=== PATIENT | male | born 1935 | race Caucasian/White ===

== ENCOUNTER 2018-03-28 14:29 | Emergency (ER) | payer MEDICARE, OTHER ==
--- NOTE | 2018-03-28 15:36 | RAD ---
INDICATION: Trauma to the occiput. COMPARISON: None. TECHNIQUE: Axial source images were acquired with coronal and sagittal reformatting. FINDINGS: There is a mild degree of exaggeration of the cervical lordosis. There is loss of intervertebral disc height at multiple levels with mild marginal osteophyte formation. Degenerative changes are most severe at C5/C6. There is no fracture or focal bony lesion. The canal and foramina appear widely patent. The odontoid and the atlantodental interval are normal. The prevertebral soft tissues appear normal. The visualized soft tissue elements of the neck are normal. The visualized lung apices are clear. IMPRESSION: DEGENERATIVE CHANGES OF THE CERVICAL SPINE WITHOUT ACUTE FRACTURE OR DISLOCATION.
--- NOTE | 2018-03-28 15:42 | RAD ---
Indication: Syncope. CT of the brain was performed without IV contrast. No prior study is available for comparison. There is parafalcine high density material just to the left of the falx consistent with a left-sided subdural hematoma. There may be tiny foci of subarachnoid hemorrhage bilaterally. This is in the parietal convexities bilaterally as well as in the right temporal region. There is also suggestion of right-sided supratentorial subdural hematoma. Ventricular structures are midline. No midline shift is noted. Prominent extra-axial spaces are noted.. The bony structures demonstrates no fracture. Paranasal sinuses are unremarkable. IMPRESSION: Left-sided parafalcine subdural hematoma with areas of subarachnoid hemorrhage bilaterally in the parietal convexities as well as in the right temporal lobe. Suggestion of right supratentorial subdural hematoma is also noted. Findings discussed with Dr. Lewis at 1535 hours.
[2018-03-28 15:53] LABS: ABS Basophils 0 10^3/ul (0-0.2); ABS Eosinophils 0 10^3/ul (0-0.6); ABS Lymphocytes 0.9 10^3/ul (1.0-4.8); ABS Monocytes 0.4 10^3/ul (0-0.8); ABS Neutrophils 7.5 10^3/ul (1.5-7.7); ABS Nucleated RBC 0 10^3/ul; Eosinophil % 0.3 % (0-6); Hematocrit 40 % (42-52); Hemoglobin 13.5 g/dl (14.0-18.0); Mean Corpuscular HGB Conc 34 g/dl (31-36); Mean Corpuscular Hemoglobin 30 pg (27-31); Mean Corpuscular Volume 89 fL (80-94); Mean Platelet Volume 7.6 um3 (7.4-10.4); Nucleated Red Blood Cells % 0.1; Platelet Count 198 10^3/ul (150-450); Red Blood Count 4.47 10^6/ul (4.0-5.4); Red Cell Distribution Width 14 % (10.5-15); White Blood Count 8.8 10^3/ul (3.5-10.8)
[2018-03-28 15:56] LABS: INR 2.73 (0.77-1.02)
[2018-03-28] MEDS ORDERED: Phytonadione INJ (Adult)* 10 MG/ML 1 ML AMP IV ONE (15:57)
--- NOTE | 2018-03-28 16:11 | ED ---
Aguila Hua Angela scribed for Vince Lewis MD on 03/28/18 at 1510 . Adult Trauma - HPI Summary HPI Summary: This pt is a 82 y/o male presenting to [facility] via EMS c/o head strike s/p fall today. Pt reports he is unable to remember how he fell today. 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 Per EMS, pt slipped and fell off the back of his truck, striking his head. Pt had LOC and does not remember falling. He currently c/o right elbow pain and abrasion at right elbow. Denies chest pain, SOB, melena, headache, dizziness. He denies being sick lately. PMHx includes afib, coronary bypass (in 2000). Pt is on anticoagulants, Warfarin. Denies hx of diabetes or UTI. - History of Current Complaint Chief Complaint: EDHeadInjury Stated Complaint: FALL Time Seen by Provider: 03/28/18 14:51 Hx Obtained From: Patient Mechanism of Injury: Fall Loss of Consciousness: prolonged (minutes) Onset/Duration: Started Hours Ago, Traumatic, Still Present Onset of Pain: Hours Current Severity: Moderate Pain Intensity: 3 Pain Scale Used: 0-10 Numeric Location: Extremities - right elbow Aggravating Factor(s): Nothing Alleviating Factor(s): Nothing Associated Signs & Symptoms: Positive: Loss of Consciousness, Other: - NEG: headache, dizziness. Negative: SOB, Chest Pain, Significant Blood Loss - Allergy/Home Medications Allergies/Adverse Reactions: Allergies Allergy/AdvReac Type Severity Reaction Status Date / Time No Known Allergies Allergy Verified 03/28/18 14:49 Home Medications: Home Medications Amiodarone TAB* [Cordarone TAB*] 100 mg PO SUTUWETHSA 03/28/18 [History Confirmed 03/28/18] Amiodarone TAB* [Cordarone TAB*] 200 mg PO MOFR 03/28/18 [History Confirmed 10/05] Aspirin EC TAB* [Ecotrin EC Low Dose 81 MG*] 81 mg PO DAILY 03/28/18 [History Confirmed 03/28/18] Aspirin EC TAB* [Ecotrin EC Low Dose 81 MG*] 81 mg PO DAILY 03/28/18 [History Confirmed 03/28/18] Levothyroxine TAB* [Synthroid TAB*] 75 mcg PO DAILY 03/28/18 [History Confirmed 03/28/18] Simvastatin TAB(NF) [Zocor(NF)] 10 mg PO QPM 03/28/18 [History Confirmed ] Warfarin TAB(*) [Coumadin TAB(*)] 2.5 mg PO SUTUWEFRSA 03/28/18 [History Confirmed 03/28/18] Warfarin TAB(*) [Coumadin TAB(*)] 5 mg PO MOTH 03/28/18 [History Confirmed 03/28] amLODIPine TAB* [Norvasc 5 mg TAB*] 2.5 mg PO DAILY 03/28/18 [History Confirmed 03/28/18] PMH/Surg Hx/FS Hx/Imm Hx Endocrine/Hematology History: Reports: Hx Anticoagulant Therapy, Hx Thyroid Disease - hypothyroidism Denies: Hx Diabetes Cardiovascular History: Reports: Hx Atrial Fibrillation, Other Cardiovascular Problems/Disorders - hyperlipidemia Denies: Hx Congestive Heart Failure, Hx Hypertension, Hx Pacemaker/ICD - Surgical History Surgery Procedure, Year, and Place: Hernia repair. Coronary bypass. cataract surgery Infectious Disease History: No Infectious Disease History: Denies: Traveled Outside the [place] in Last 30 Days - Family History Known Family History: Positive: Cardiac Disease - CAD - Social History Alcohol Use: None Substance Use Type: Reports: None Hx Tobacco Use: No Smoking Status (MU): Never Smoked Tobacco Review of Systems Negative: Fever, Chills Negative: Erythema Negative: Sore Throat Negative: Chest Pain Negative: Shortness Of Breath, Cough Negative: Abdominal Pain, Vomiting, Nausea, Other - melena Negative: dysuria, hematuria Positive: Arthralgia - right elbow pain. Negative: Myalgia, Edema Skin: Other - abrasion on right elbow Negative: Rash Neurological: Other - NEG: dizziness Negative: Headache All Other Systems Reviewed And Are Negative: Yes Physical Exam - Summary Physical Exam Summary: Constitutional: Well-developed, Well-nourished, Alert, Cooperative Skin: Warm, Dry HENT: Normocephalic; No Racoons eyes; No zelaya's sign; No hemotympanum; Dentition are smooth; No dental trauma; No trismus. Some dry blood on the front of his upper nose. Eyes: EOM normal, PERRL Neck: Trachea is midline. No stridor; No JVD; No step off; No posterior cervical spine tenderness Cardio: Rhythm regular, rate normal Heart sounds normal; Intact distal pulses; The pedal pulses are 2+ and symmetric. Radial pulses are 2+ and symmetric. Pulmonary/Chest wall: Effort normal; Breath sounds normal; Equal chest rise; No flail segment; No rib tenderness; No sternal tenderness Abd: Soft, Appearance normal. No distension; No tenderness; No palpable pulsatile mass; No Cullens sign; No Francois-Turners sign Musculoskeletal: Full ROM and no tenderness at hips, ankles, shoulders, elbows and knees; No joint swelling; No vertebral body tenderness; No paraspinal tenderness; No step off or deformity of the spine; Pelvis is stable to lateral compression and rock Neuro: Alert, Oriented x3, Strength 5/5 all extremities. : No blood at urethral meatus Psych: Mood and affect Normal Triage Information Reviewed: Yes Vital Signs On Initial Exam: Initial Vitals Temp Pulse Resp BP Pulse Ox 98.5 F 57 18 168/83 95 03/28/18 14:44 03/28/18 14:44 03/28/18 14:44 03/28/18 14:44 03/28/18 14:44 Vital Signs Reviewed: Yes - Ralston Coma Scale Best Eye Response: 4 - Spontaneous Best Motor Response: 6 - Obeys Commands Best Verbal Response: 5 - Oriented Coma Scale Total: 15 Diagnostics - Vital Signs Vital Signs Temp Pulse Resp BP Pulse Ox 03/28/18 14:44 98.5 F 57 18 168/83 95 - Laboratory Lab Results: Lab Results 03/28/18 03/28/18 03/28/18 Range/Units 15:40 15:40 15:44 WBC 8.8 (3.5-10.8) 10^3/ul RBC 4.47 (4.0-5.4) 10^6/ul Hgb 13.5 L (14.0-18.0) g/dl Hct 40 L (42-52) % MCV 89 (80-94) fL MCH 30 (27-31) pg MCHC 34 (31-36) g/dl RDW 14 (10.5-15) % Plt Count 198 (150-450) 10^3/ul MPV 7.6 (7.4-10.4) um3 Neut % (Auto) 84.4 H (38-83) % Lymph % (Auto) 10.0 L (25-47) % [place] % (Auto) 4.9 (0-7) % Eos % (Auto) 0.3 (0-6) % Baso % (Auto) 0.4 (0-2) % Absolute Neuts (auto) 7.5 (1.5-7.7) 10^3/ul Absolute Lymphs (auto) 0.9 L (1.0-4.8) 10^3/ul Absolute Monos (auto) 0.4 (0-0.8) 10^3/ul Absolute Eos (auto) 0 (0-0.6) 10^3/ul Absolute Basos (auto) 0 (0-0.2) 10^3/ul Absolute Nucleated RBC 0 10^3/ul Nucleated RBC % 0.1 INR (Anticoag Therapy) 2.73 H (0.77-1.02) Blood Type Pending Antibody Screen Pending Result Diagrams: 03/28/18 15:40 Lab Statement: Any lab studies that have been ordered have been reviewed, and results considered in the medical decision making process. - Radiology Chest XR Radiology Interpretation Completed By: Radiologist - CT Brain CT CT Interpretation: Positive (See Comments) - IMPRESSION: Left-sided parafalcine subdural hematoma with areas of subarachnoid hemorrhage bilaterally in the parietal convexities as well as in the right temporal lobe. Suggestion of right supratentorial subdural hematoma is also noted. Dr. Lewis has reviewed this radiology report. CT Interpretation Completed By: Radiologist Cervical spine CT CT Interpretation: No Acute Changes - IMPRESSION: Degenerative changes of the cervical spine without acute fracture or dislocation. Dr. Lewis has reviewed this radiology report. CT Interpretation Completed By: Radiologist - EKG 15:08 Cardiac Rate: Bradycardia - at 58 bpm EKG Rhythm: Sinus Bradycardia EKG Interpretation: No STEMI. Re-Evaluation - Re-Evaluation First Eval Re-Evaluation Time: 15:45 Comment: I reviewed the brain CT results with the pt's family. I discussed the plan to transfer to [facility]. Second Eval Re-Evaluation Time: 16:00 Comment: I discussed the plan of care with the pt. Third Eval Change: Unchanged - UPDATED RE: TX PLAN, TRANSFER, REVERSAL Adult Trauma Course/Dx - Course Assessment/Plan: Pt is a 82 y/o male who presents with head strike s/p fall today. Pt reports he is unable to remember how he fell today. 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 Per EMS, pt slipped and fell off the back of his truck, striking his head. Pt had LOC and does not remember falling. He currently c/o right elbow pain. Denies chest pain, SOB, melena, headache, dizziness. He denies being sick lately. Pt is on anticoagulated on Warfarin. Cervical spine CT shows degenerative changes of the cervical spine without acute fracture or dislocation. Brain CT reveals left-sided parafalcine subdural hematoma with areas of subarachnoid hemorrhage bilaterally in the parietal convexities as well as in the right temporal lobe. Suggestion of right supratentorial subdural hematoma is also noted. I discussed pt care with Dr. Fitch, neuro webbing inspector at [facility] , who reports to give the pt hydralazine to keep the blood pressure below 140 systolic. She additionally reports to administer Kcentra vs FFP for reversal of INR. Dr. Fitch has agreed to accept the pt for transfer to [facility]. - Diagnoses Provider Diagnoses: Subdural hematoma, Subarachnoid hemorrhage, Anticoagulated - Physician Notifications Discussed Care Of Patient With: Ana Bonilla Time Discussed With Above Provider: 15:35 Instructed by Provider To: Other - Dr. Bonilla, radiologist, reports subdural hematoma and hemorrhage. [15:47] I discussed pt care with Dr. Fitch, neuro webbing inspector at [facility], who reports to give the pt hydralazine to keep the blood pressure below 140 systolic. She additionally reports to administer Kcentra vs FFP for reversal of INR. Dr. Fitch has agreed to accept the pt for transfer to [facility]. - Critical Care Time Critical Care Time: 30-74 min Discharge - Sign-Out/Discharge Documenting (check all that apply): Discharge/Admit/Transfer - Transfer - Discharge Plan Condition: Stable Disposition: TRANS [facility] CARE FAC Discharge Disposition Comment: [facility] Referrals: Deion Brown MD [Primary Care Provider] - - Billing Disposition and Condition Condition: STABLE Disposition: EMTALA The documentation as recorded by the [place] Angela accurately reflects the service I personally performed and the decisions made by me, Vince Lewis MD.
[2018-03-28 16:24] LABS: EGFR Non-African American 46.4 (>60)
[2018-03-28] MEDS: hydrALAZINE IV* 20 MG/ML VIAL IV SLOW PU ONE ×2 (19:31→19:33)
[2018-03-28 19:36] VITALS: BP 157/84
== END 2018-03-28 19:33 | disposition short-term general hospital (02) ==
LOC: ED 14:29
DX: I60.9 Nontraumatic subarachnoid hemorrhage, unspecified (principal); M25.521 Pain in right elbow; Z79.01 Long term (current) use of anticoagulants
CPT/HCPCS: 36415; 70450; 72125; 80053; 83605; 83735; 84443; 84484; 85025; 85610; 86850; 86900; 86901; 93005; 96374; 96375; 99285; C9132; J3430

== ENCOUNTER 2018-11-22 08:50 | Inpatient (IN) | payer MEDICARE, OTHER ==
--- NOTE | 2018-11-22 09:29 | ED ---
HPI Chest Pain - HPI Summary HPI Summary: Patient is an 83-year-old male with history of CABG and dysrhythmia presenting to the ED with left-sided rib tenderness. He states he injured the ribs approximately 10 days ago, stating he twisted wrong in bed and since that time the ribs have been in pain. He denies any chest pain. Denies any back pain. He is also endorsing some "gurgling" in his abdomen and is concerned if these are related. He endorses concern for his heart d/t his history. Patient is a poor historian and continues to state "I don't know" when asked about timelines and what is his CC. denies any fevers, sweats, chills. Denies any SOB. He states the pain is currently a 3/10, constant and aching. He denies any nausea , vomiting, diarrhea, constipation. Denies any urinary symptoms. He takes levothyroxine, warfarin, aspirin and simvastatin daily. PCP is Dr. Kaufman. - History of Current Complaint Chief Complaint: EDChestWallPain Time Seen by Provider: 11/22/18 09:00 Hx Obtained From: Patient Onset/Duration: Started Hours Ago Timing: Constant Initial Severity: Moderate Current Severity: Mild Pain Intensity: 3 Pain Scale Used: 0-10 Numeric Chest Pain Location: Left Anterior - left sided rib pain Chest Pain Radiates: No Character: Dull/Aching Aggravating Factor(s): Nothing Alleviating Factor(s): Nothing Associated Signs and Symptoms: Positive: Negative - Risk Factors AMI/ACS Risk Factors: Dyslipidemia - Allergy/Home Medications Allergies/Adverse Reactions: Allergies Allergy/AdvReac Type Severity Reaction Status Date / Time No Known Allergies Allergy Verified 11/22/18 08:58 PMH/Surg Hx/FS Hx/Imm Hx Previously Healthy: Yes Endocrine/Hematology History: Reports: Hx Anticoagulant Therapy, Hx Thyroid Disease - hypothyroidism Denies: Hx Diabetes Cardiovascular History: Reports: Hx Atrial Fibrillation, Other Cardiovascular Problems/Disorders - hyperlipidemia Denies: Hx Congestive Heart Failure, Hx Hypertension, Hx Pacemaker/ICD - Surgical History Surgery Procedure, Year, and Place: Hernia repair. Coronary bypass. cataract surgery - Immunization History Hx Pertussis Vaccination: No Immunizations Up to Date: Yes Infectious Disease History: No Infectious Disease History: Denies: Traveled Outside the [place] in Last 30 Days - Family History Known Family History: Positive: Cardiac Disease - CAD - Social History Occupation: Unemployed Lives: With Family Alcohol Use: None Hx Substance Use: No Substance Use Type: Reports: None Hx Tobacco Use: No Smoking Status (MU): Never Smoked Tobacco Review of Systems Negative: Fever, Chills, Fatigue, Skin Diaphoresis Negative: Blurred Vision, Diplopia Negative: Dental Pain, Sore Throat Positive: Chest Pain - left sided pain over ribs Negative: Shortness Of Breath, Cough Positive: Other - abdominal "fluttering" Genitourinary: Negative Positive: no symptoms reported, see HPI Positive: Myalgia - left sided ribs Neurological: Negative All Other Systems Reviewed And Are Negative: Yes Physical Exam Triage Information Reviewed: Yes Vital Signs On Initial Exam: Initial Vitals Temp Pulse Resp BP Pulse Ox 97.1 F 70 14 143/78 98 11/22/18 08:53 11/22/18 08:53 11/22/18 08:53 11/22/18 08:53 11/22/18 08:53 Vital Signs Reviewed: Yes Appearance: Positive: Well-Appearing, Well-Nourished Skin: Positive: Skin Color Reflects Adequate Perfusion Head/Face: Positive: Normal Head/Face Inspection Eyes: Positive: EOMI, SHLOMO, Conjunctiva Clear Neck: Positive: Supple, No Lymphadenopathy Respiratory/Lung Sounds: Positive: Clear to Auscultation, Breath Sounds Present Cardiovascular: Positive: Pulses are Symmetrical in both Upper and Lower Extremities. Negative: Leg Edema Left, Leg Edema Right Musculoskeletal: Positive: Normal, Strength/ROM Intact Neurological: Positive: Speech Normal Psychiatric: Positive: Normal, Affect/Mood Appropriate AVPU Assessment: Alert Diagnostics - Vital Signs Vital Signs Temp Pulse Resp BP Pulse Ox 11/22/18 08:53 97.1 F 70 14 143/78 98 - Laboratory Result Diagrams: 11/22/18 10:02 11/22/18 10:02 Lab Statement: Any lab studies that have been ordered have been reviewed, and results considered in the medical decision making process. - CT No standard instances CT Interpretation Completed By: Radiologist - IMPRESSION: Minimally impacted and displaced distal right radius fracture. - EKG No standard instances EKG Rhythm: Sinus Rhythm ST Segment: Normal - Left bundle-branch block Ectopy: None EKG Comparison: No Significant Change Chest Pain Course/Dx - Course Course Of Treatment: During questioning, the patient is evaluated for left- sided rib pain and abdominal "are going." CT of the chest abdomen pelvis obtained. Labs obtained. EKG obtained. Patient is comfortable, nondiaphoretic. Vital signs are stable. Patient appears well, alert and oriented. is at bedside. EKG shows normal sinus rhythm with a left bundle branch block. History of CABG. Troponin elevated. I have asked hospitalist to come see the patient and admit for elevated troponin. We'll repeat troponin in 1 hour. - Chest Pain Differential Diagnosis/HQI/PQRI: Acute MO, ACS, Angina, CHF, Chest Wall - Diagnoses Provider Diagnoses: Elevated troponin, Left-sided chest wall pain - Provider Notifications Discussed Care Of Patient With: Alexandr Robles Discharge - Sign-Out/Discharge Documenting (check all that apply): Patient Departure - Discharge Plan Condition: Fair Disposition: ADMITTED TO [facility] - Billing Disposition and Condition Condition: FAIR Disposition: Admitted to [facility]
[2018-11-22 10:20] LABS: ABS Basophils 0.1 10^3/ul (0-0.2); ABS Eosinophils 0 10^3/ul (0-0.6); ABS Monocytes 0.5 10^3/ul (0-0.8); ABS Neutrophils 4.2 10^3/ul (1.5-7.7); ABS Nucleated RBC 0 10^3/ul; Eosinophil % 0.3 %; Hematocrit 42 % (42-52); Hemoglobin 14.1 g/dl (14.0-18.0); Lymphocyte % 17.5 %; Mean Corpuscular HGB Conc 34 g/dl (31-36); Mean Corpuscular Hemoglobin 30 pg (27-31); Mean Corpuscular Volume 88 fL (80-94); Mean Platelet Volume 7.5 fL (7.4-10.4); Nucleated Red Blood Cells % 0; Platelet Count 218 10^3/ul (150-450); Red Cell Distribution Width 14 % (10.5-15); White Blood Count 5.7 10^3/ul (3.5-10.8)
[2018-11-22 10:29] LABS: Activated Partial Thrombo Time 44.5 seconds (26.0-36.3); INR 2.58 (0.77-1.02)
[2018-11-22 10:41] LABS: Albumin 3.8 g/dL (3.2-5.2); Albumin/Globulin Ratio 1.3 (1-3); BUN/Creatinine Ratio 20.7 (8-20); C Reactive Protein 1.44 mg/L (<8.01); Calcium 9.2 mg/dL (8.6-10.3); Magnesium 1.9 mg/dL (1.9-2.7); Potassium 4.5 mmol/L (3.5-5.0); Total Bilirubin 0.6 mg/dL (0.2-1.0); Total Protein 6.8 g/dL (6.4-8.9)
[2018-11-22] MEDS ORDERED: Levofloxacin 750 MG IVPREMIX(* 750 MG/150 ML BAG IVPB ONE (11:12)
[2018-11-22 11:56] LABS: Urine Appearance Clear; Urine Bacteria Absent (Absent); Urine Bilirubin Negative (Negative); Urine Blood 1+ (Negative); Urine Color Yellow; Urine Glucose Negative (Negative); Urine Ketones Trace (Negative); Urine Nitrite Negative (Negative); Urine Protein Negative (Negative); Urine Red Blood Cell 1+(3-5/hpf) (Absent); Urine Specific Gravity 1.017 (1.010-1.030); Urine Urobilinogen Negative (Negative); Urine White Blood Cell Trace(0-5/hpf) (Absent)
[2018-11-22] MEDS ORDERED: Azithromycin IV(*) 500 MG in NS 0.9% 250 ML* 250 ML IVPB ONE (12:02)
[2018-11-22 15:57] LABS: Erythrocyte Sed Rate 18 mm/Hr (0-40)
--- NOTE | 2018-11-22 15:57 | HP ---
CC: Dr. Deion Brown; Dr. Pawan Antunez * HISTORY AND PHYSICAL: DATE OF ADMISSION: 11/22/18 PRIMARY CARE PROVIDER: Dr. Deion Brown. PRIMARY PRECISION LAYOUT WORKER: Dr. Pawan Antunez. ATTENDING PHYSICIAN: Dr. Alexandr Robles * (dictated by Cheryl Lee NP). CHIEF COMPLAINT: Left rib tenderness. HISTORY OF PRESENT ILLNESS: Mr. Hernandes is an 83-year-old male with past medical history significant for hypothyroidism, hyperlipidemia, atrial flutter, osteopenia, chronic kidney disease stage 2, chronic ischemic heart disease, L2 compression fracture, left bundle-branch block, mitral valve disorder, and hypertension, who states that approximately 10 days ago while sleeping on his stomach with his arms crossed underneath him, he felt as though he twisted wrong in the bed and heard a "cracking sound" in his left ribs. Please note that this patient is a poor historian and is really unsure of a lot of his medical care and his is no longer at bedside to assist with HPI. Ever since then, he has been having left- sided discomfort mostly at night when he is sleeping on his left side. He also reports having increased upper abdominal discomfort when ambulating that he relates to being "gas in his stomach." He denies any fevers, chills. Initially, he denies any shortness of breath, nausea , vomiting, diarrhea, dysuria, or urgency. He states he has urinary frequency at baseline. He denies any lightheadedness or dizziness. He says he occasionally has coughing spells due to postnasal drip. He states when he had his previous MT and 5-vessel CABG in 2000, he had no chest pain at that time but had noted that his breathing was heavier with his typical activities. He reports having recent increased shortness of breath with ambulation. He has been following with his ice sculptor who had him have pulmonary function testing showing a decrease in his pulmonary function while he was on amiodarone , so his amiodarone was discontinued a few months ago. He states that recently he typically has no problems walking down his [address] to retrieve the paper, but when he gets to the top of the hill, he is often breathing heavy and has to stop to rest. At his last appointment with Cardiology in July, he walked the 4 flight of stairs to their office and felt slightly more short of breath at that point also. Due to his discomfort, he decided to present to the emergency room for further evaluation of his symptoms. While in the emergency room, he had an EKG showing a sinus rhythm, a left bundle - branch block, and no acute ischemia. He had labs showing a troponin of 1.9, which was re-run by the lab and the second run on that was 2. He was noted to have his baseline chronic kidney disease and INR of 2.58. Additionally, he had a chest, abdomen, and pelvis CT scan due to his vague abdominal complaints. He was noted to have a deformity of L2 and a possible atypical pneumonia in his right upper lobe. The hospitalist was asked to evaluate him for admission. PAST MEDICAL HISTORY: 1. Hypothyroidism. 2. Hyperlipidemia. 3. Atrial flutter. 4. Osteopenia. 5. Chronic kidney disease, stage 2. 6. Chronic ischemic heart disease. 7. L2 compression fracture. 8. Left bundle-branch block. 9. Mitral valve disorder. 10. Hypertension. PAST SURGICAL HISTORY: 1. Status post inguinal hernia repair. 2. Status post 5-vessel coronary artery bypass graft in 2000. 3. Status post bilateral cataract extractions. HOME MEDICATIONS: Include: 1. Warfarin 5 mg oral daily on Saturday, Saturday, Saturday, , and Saturday and 2.5 mg oral daily on Tuesdays and Saturdays. 2. Zocor 10 mg oral every evening. 3. Levothyroxine 75 mcg oral daily. 4. Aspirin 81 mg oral daily. ALLERGIES: 1. LIPITOR caused a rash and myalgia. 2. VYTORIN caused nausea. 3. ZOCOR caused myalgia at higher doses. 4. CRESTOR, myalgia on 5 mg. FAMILY HISTORY: His mother passed of congestive heart failure. His father passed from suicide. He has a brother with a history of CVA, a brother with a history of coronary artery disease, a brother with a history of lymphoma, and a brother with a history of prostate cancer. He denies any family history of diabetes. SOCIAL HISTORY: He denies tobacco, alcohol, or recreational drug use. His Alysia Hernandes will be his surrogate decision maker in the event he is unable to make decisions for himself. REVIEW OF SYSTEMS: I performed an 11-point review of systems. All the pertinent positives and negatives are mentioned in the history of present illness. The remaining review of systems are negative. PHYSICAL EXAMINATION GENERAL APPEARANCE: The patient is alert, pleasant, and appears to be in no acute distress. VITAL SIGNS: Temperature 97.1, heart rate 65, respiratory rate 18, O2 sat 95% on room air, blood pressure 168/87. HEENT: Normocephalic, atraumatic. Pupils are equal and reactive to light. Extraocular movements are intact. RESPIRATORY: There is no accessory muscle use and the lungs are clear to auscultation bilaterally. CARDIOVASCULAR: Regular rate and rhythm. S1 and S2 are present. There is a grade 2/6 systolic murmur heard best at the apex. ABDOMEN: Soft, nontender, nondistended. There are bowel sounds present x4. EXTREMITIES: There is no lower extremity edema. DP and PT pulses are 2+ and symmetric. MUSCULOSKELETAL: There is no clubbing or cyanosis noted. The patient exhibits good strength in all extremities. NEUROLOGICAL: The patient is alert and oriented x4. Cranial nerves II through XII are grossly intact. PSYCHOLOGICAL: Calm and cooperative. SKIN: There are no rashes or abnormalities seen. DIAGNOSTIC STUDIES/LAB DATA: Sodium 138, potassium 4.5, chloride 107, CO2 of 28, BUN 25, creatinine 1.21, and glucose 105. White blood cell count 5.7, hemoglobin 14.1, hematocrit 42, and platelet count 218. Alk phos is 108. INR 2.58 and troponin is 1.90. EKG shows a sinus rhythm, rate of 65. There is a left bundle-branch block and no acute signs of ischemia. This EKG is similar to previous EKG from 03/28/18. Chest, abdomen, and pelvis CT scan from today. Radiologist's impression: There is a compression deformity of the L2 vertebral body that has progressed slightly when compared to 05/07/12 lumbar spine radiograph. Otherwise, there are no acute fractures. CT findings could be compatible with atypical pneumonia involving the lateral right upper lobe. Benign appearing lipoma at the right axilla. Please correlate to physical exam findings. Chronic degenerative and iatrogenic findings described in the body of the report, unlikely to be directly related to the patient's current clinical presentation. IMPRESSION: Mr. Hernandes is an 83-year-old male with past medical history significant for hypothyroidism, hyperlipidemia, atrial flutter, osteopenia, chronic kidney disease stage 2, chronic ischemic heart disease, L2 compression fracture, left bundle-branch block, mitral valve disorder, and hypertension, who presented to the emergency room with complaints of left rib tenderness and increased shortness of breath with activity. He will be admitted as an inpatient for a non-ST elevated myocardial infarction. ASSESSMENT/PLAN: 1. Non-ST elevated myocardial infarction. The patient's initial troponin was 1.09 and on repeat of that lab was 2.0. He has no ischemic changes on his EKG. He does have a chronic left bundle-branch block. He is currently denying chest pain at this time. He has no pain that is reproducible with palpation. I am going to trend his troponins and get serial EKGs with the troponins. If his troponin elevates above his initial troponin, I will ask Cardiology to see him today, but otherwise, I am going to follow his course and see how he does. He is not currently on a beta-anca. He had previously been on metoprolol. I am going to try to review the cardiology notes and see why he has been taken off a beta- anca. He is already on a statin. I am going to leave his dose where it is and check LFTs tomorrow. He has had myalgias with increase in his statins previously, so I am going to leave it as is. I am going to continue him on his aspirin 81 mg daily. I am going to hold on a heparin drip as he is already fully anticoagulated on warfarin, which is therapeutic today. Based on what his troponins do, I will consider getting an echocardiogram tomorrow. 2. Chronic kidney disease, stage 2. His creatinine is at baseline. 3. Hypothyroidism. His last TSH was on 09/04/18, at that time it was 1.23. We will continue him on his home dose of levothyroxine. 4. Hyperlipidemia. Again, as above, we are going to check fasting lipids in the morning. I am going to continue him on his current statin or hospital auto - substitute. 5. Atrial flutter. He is in regular rate today. It appears that he has stayed in sinus rhythm for quite some time after being taken off his amiodarone back in July. We will continue him on his warfarin. He currently has a therapeutic INR. 6. L2 compression fracture. We will offer supportive care, Tylenol as needed for pain. 7. Hypertension. He has been mostly normotensive for somebody of his age with systolic blood pressures in the 140s to 150s while in the emergency room. He is not currently on anything. According to the patient, he was recently taken off his beta-anca and Norvasc. Again, I will try to find the records from Cardiology to see why he has been taken off these medications, but for now I am going to leave his blood pressure where it is at. 8. Fluids, electrolytes, and nutrition: The patient will be on a heart- healthy diet. 9. Code status: Full code. 10. DVT prophylaxis: He is at high risk. He will be continued on his warfarin , which is at a therapeutic level today. 11. Disposition: Inpatient. TIME SPENT: Time for this admission was approximately 60 minutes, greater than half of that was spent with the patient discussing medications, past medical history, the events leading up to his arrival today, and performing a physical examination. The case has been reviewed with the attending Dr. Robles, who agrees with the plan of care. CHERYL LEE, NICKI [id number]/CPS #: [id number] [place]
[2018-11-22] MEDS: Atorvastatin* 10 MG TAB PO SCH (17:00)
[2018-11-22] MEDS ORDERED: Warfarin TAB(*) 2.5 MG PO SCH (17:00)
[2018-11-22] MEDS: Metoprolol Tartrate TAB* 25 MG PO SCH (20:50)
[2018-11-23 05:36] LABS: INR 2.3 (0.77-1.02)
[2018-11-23 05:48] LABS: HDL Cholesterol 47.6 mg/dL
[2018-11-23] MEDS ORDERED: Levothyroxine TAB* 75 MCG TAB PO SCH (06:00)
[2018-11-23 06:34] LABS: TSH (Thyroid Stimulating Horm) 0.31 mcIU/mL (0.34-5.60)
[2018-11-23] MEDS: Metoprolol Tartrate TAB* 25 MG PO SCH ×2 (08:22→20:24)
[2018-11-23] MEDS: Aspirin EC TAB* 81 MG TAB.EC PO SCH (08:22)
--- NOTE | 2018-11-23 10:10 | ECHO ---
Patient: ANI TURK [facility] Rec#: [id number] : 1935 Date: 11/23/2018 Age: 83y Height: 160 cm / 63.0 in Weight: 66 kg / 145.5 lbs Sex: M BSA: 1.69 Room#: [facility] Type: Inpatient Referring: Anya Alberto NP Reading: Chandni Salter MD Porcelain Mixer: Anya Velazquez RDCS CC: Pawan Antunez MD CC: Deion Brown MD Transthoracic Echocardiogram Indication: NSTEMI BP: 125/65 HR: 55 Rhythm: Bradycardia Findings History: Hypothyroidism, HTN, HLD, CKD II, atrial flutter, chronic ischemic heart disease, LBBB, s/p CABG 5 vessel. Technical Comments: The study quality is good. Completed at 0900. Left Ventricle: The left ventricular chamber size is normal. There is no left ventricular hypertrophy. There is moderately decreased left ventricular systolic function.Base of the posterior wall and most of the inferior wall is akinetic and severely hypokinetic. The estimated ejection fraction is 40-45%. There is a left ventricular septal wall motion abnormality observed, possibly due to the presence of a left bundle branch block.and prior CABG. Abnormal left ventricular diastolic filling is observed, consistent with impaired relaxation. Left Atrium: The left atrium is mildly dilated. Right Ventricle: Moderator Band present. The right ventricular cavity size is normal. The right ventricular global systolic function is normal. Right Atrium: The right atrial cavity size is normal. Aortic Valve: The aortic valve is trileaflet. The aortic valve leaflets are mildly thickened. There is a trace of aortic regurgitation. There is no evidence of aortic stenosis. Mitral Valve: There is mitral annular calcification. The mitral valve leaflets are mildly thickened. There is mild mitral regurgitation. There is no evidence of mitral stenosis. Tricuspid Valve: The tricuspid valve leaflets are normal. There is trace to mild tricuspid regurgitation. The right ventricular systolic pressure is estimated at 28 mmHg. No pulmonary hypertension is noted. There is no tricuspid stenosis. Pulmonic Valve: The pulmonic valve appears normal. There is a trace pulmonic regurgitation. There is no pulmonic stenosis. Pericardium: There is no significant pericardial effusion. Aorta: There is mild dilatation of the ascending aorta. There is no dilatation of the aortic arch. There is mild dilatation of the aortic root. Pulmonary Artery: The main pulmonary artery appears normal. Venous: The inferior vena cava appears normal in size. There is a greater than 50% respiratory change in the inferior vena cava dimension. Conclusions The left ventricular chamber size is normal. There is moderately decreased left ventricular systolic function.Base of the posterior wall and most of the inferior wall is akinetic and severely hypokinetic. Septal dysychrony, marked c/w prior CABG and the presence of a LBBB. The estimated ejection fraction is 40%. Abnormal left ventricular diastolic filling is observed, consistent with impaired relaxation. The right ventricular global systolic function is normal. There is aortic valve sclerosis and trace of aortic regurgitation. There is mild mitral regurgitation. There is trace to mild tricuspid regurgitation. The right ventricular systolic pressure is estimated at 28 mmHg (normal). There is mild dilatation of the ascending aorta (3.5 cm). Compared with prior echo of 04/16/17 EF has decreased from 45-50%, wall motion abnormalities not significantly changed, valve function is stable. Measurements Name Value Normal Range RVIDd (AP) 2D 3.1 cm (0.9 - 2.6) RVDdMajor (2D) 4.3 cm (2.2 - 4.4) RAd ISD 4CH 4.8 cm (3.4 - 4.9) RA (A4C)W 4.4 cm (2.9 - 4.6) IVSd (2D) 1 cm (0.6 - 1) LVPWd (2D) 0.9 cm (0.6 - 1) LVIDd (2D) 5.3 cm (3.6 - 5.4) LVIDs (2D) 4.4 cm - LV FS (2D) 17 % (25 - 45) Aortic Annulus 2.1 cm (1.4 - 2.6) Ao root diameter (2D) 3.6 cm (2.1 - 3.5) Ascending Ao 3.5 cm (2.1 - 3.4) Aortic arch 2.8 cm (1.8 - 3.4) LA dimension (AP) 2D 4.4 cm (2.3 - 3.8) LAd ISD 4CH 5.4 cm (2.9 - 5.3) LA ISD 4CH W 4.5 cm (2.5 - 4.5) Name Value Normal Range LA ESV BP (A/L) index 37 ml/m2 - Name Value Normal Range MV E-wave Vmax 0.3 m/sec - MV deceleration time 282 msec - MV A-wave Vmax 0.6 m/sec - MV E:A ratio 0.5 ratio - LV septal e' Vmax 0.05 m/sec - LV lateral e' Vmax 0.06 m/sec - LV E:e' septal ratio 6 ratio - LV E:e' lateral ratio 5 ratio - Name Value Normal Range AV Vmax 1.2 m/sec - AV VTI 23 cm - AV peak gradient 5 mmHg - AV mean gradient 3 mmHg - LVOT Vmax 0.9 m/sec - LVOT VTI 17 cm - LVOT peak gradient 3 mmHg - LVOT mean gradient 2 mmHg - EDER Vmax 0.5 m/sec - Name Value Normal Range TR Vmax 2.5 m/sec - TR peak gradient 25 mmHg - RAP 3 mmHg - RVSP 28 mmHg - IVC diameter 1.6 cm - Name Value Normal Range PV Vmax 0.7 m/sec - PV peak gradient 2 mmHg -
--- NOTE | 2018-11-23 10:28 | PN ---
Subjective Date of Service: 11/23/18 Interval History: Pt reports "I feel fine" stating he feels that he is at his baseline health. Denies SOB/CP. No nausea. Reports he has had intermittent left rib pain on and off stating it was from "sleeping funny and hearing a rib pop". He does report decrease in exercise tolerance. Denies any recent cough, fever, chills. Objective Active Medications: Aspirin (Aspirin Ec Tab*) 81 mg PO DAILY [facility] Last Admin: 11/23/18 08:22 Dose: 81 mg Atorvastatin Calcium (Lipitor*) 5 mg PO QPM [facility] Last Admin: 11/22/18 17:00 Dose: 5 mg Levothyroxine Sodium (Synthroid Tab*) 50 mcg PO DAILY@0600 [facility] Metoprolol Tartrate (Lopressor Tab*) 12.5 mg PO Q12HR [facility] Last Admin: 11/23/18 08:22 Dose: 12.5 mg Vital Signs - 8 hr 11/23/18 11/23/18 11/23/18 03:18 07:21 08:00 Temperature 97.8 F 98.7 F Pulse Rate 56 62 Respiratory 16 20 18 Rate Blood Pressure 125/65 143/80 (mmHg) O2 Sat by Pulse 93 97 Oximetry Oxygen Devices in Use Now: None Appearance: 83 yo male appears well developed A+Ox3 in NAD Eyes: No Scleral Icterus, PERRLA Ears/Nose/Mouth/Throat: NL Teeth, Lips, Gums, Mucous Membranes Moist Neck: NL Appearance and Movements; NL JVP, Trachea Midline Respiratory: Symmetrical Chest Expansion and Respiratory Effort, Clear to Auscultation Cardiovascular: NL Sounds; No Murmurs; No JVD, RRR, No Edema Abdominal: NL Sounds; No Tenderness; No Distention Extremities: No Edema, No Clubbing, Cyanosis Skin: No Rash or Ulcers, No Nodules or Sclerosis Neurological: Alert and Oriented x 3, NL Sensation, NL Gait, NL Muscle Strength and Tone Lines/Tubes/Other Access: Clean, Dry and Intact Peripheral IV Nutrition: Taking PO's Result Diagrams: 11/22/18 10:02 11/23/18 05:04 Assess/Plan/Problems-Billing Assessment: 83 yo male with a PMH of hypothyroidism, HLD, CKD stage 2, chronic ischemic heart disease, atrial flutter, LBBB, mitral valve disorder, HTN, L2 compression fx who presented to the ER on 11/22/17 with c/o left rib tenderness and increased SOB with exertion found to have an NSTEMI - Patient Problems (1) NSTEMI (non-ST elevated myocardial infarction) Comment: - Pt Chest pain free. Reproducible Left Lateral rib pain. VSS stable - Possible demand ischemia (hyperthyroid) vs CAD - troponin peaked 1.92 now trending down but did come back up - discussed with cards will add on Troponin to this am's labs. EKG no changes but has LBBB. - INR therapeutic - coumadin on hold for possible Cath. - continue ASA, BB, statin (low dose statin - per cards has been not able to tolerated higher dose statins in the past - is being followed closely by cards outpt) - Appreciate cardiology consult - plan for chemical nuclear stress in am. Add on T4, T3. This could be hyperthyroid induced demand ischemia vs CAD. - Echo showing decrease EF 40% (down from 45-50-%) with some motion wall abnormalities not significantly changed from prior. (2) Hypothyroid Comment: - hx of hypothyroid found to have a TSH slightly suppressed - 0.31 - Did receive this mornings dose. Its possible d/t his amiodarone recently DC'd he requires less thyroid hormone. Plan to hold synthroid at this time. Consult endocrine for recommendations. Add on T3, T4 (3) Abnormal CT of the chest Comment: - CT chest showing "atypical pneumonia involving the lateral right upper lobe". Does not appears to have pneumonia or an infectious process. Did recieve a dose of levaquin and azithro in ED. Abx currently on hold. ESR/CRP negative. No other signs of pneumonia. Add on procalcitonin. Continue to monitor (4) CKD (chronic kidney disease) stage 2, GFR 60-89 ml/min Comment: - appears to be at baseline (5) HLD (hyperlipidemia) Comment: - continue statin - see above (6) Atrial flutter Comment: NSR. INR therapuetic on coumadin (currently on hold), continue ASA, BB has been started (unclear why this was stopped outpt but noted to have lower HR), continue tele monitoring - Restart coumadin tomorrow if no plan for cardiac cath (7) L2 vertebral fracture (8) HTN (hypertension) Comment: - controlled. continue current regimen. not on any antihypertensives at home (9) DVT prophylaxis Comment: coumadin. INR therapuetic (10) Full code status Status and Disposition: inpatient. Elevated troponins demand ischemia vs CAD. Plan for cardiac nuclear stress test in am
[2018-11-23 10:57] LABS: BUN/Creatinine Ratio 20.6 (8-20); Calcium 8.9 mg/dL (8.6-10.3); EGFR Non-African American 65.7 (>60)
[2018-11-23 11:16] LABS: Free T4 1.39 ng/dL (0.61-1.12)
--- NOTE | 2018-11-23 12:18 | PN ---
Subjective Date of Service: 11/23/18 - CC: low chest discomfort Interval History: The patient had recurrent left lower chest discomfort earlier today. The patient told me of stress at home, he thinks his has early dementia, she is refusing to see any MD's. The patient has not informed his MD daughter he is in [place], does not have her phone number. Medications Active Medications: Aspirin (Aspirin Ec Tab*) 81 mg PO DAILY [facility] Last Admin: 11/23/18 08:22 Dose: 81 mg Atorvastatin Calcium (Lipitor*) 5 mg PO QPM [facility] Last Admin: 11/22/18 17:00 Dose: 5 mg Levothyroxine Sodium (Synthroid Tab*) 50 mcg PO DAILY@0600 [facility] Metoprolol Tartrate (Lopressor Tab*) 12.5 mg PO Q12HR [facility] Last Admin: 11/23/18 08:22 Dose: 12.5 mg Objective Vital Signs: Temp Pulse Resp BP Pulse Ox 98.7 F 62 18 143/80 97 11/23/18 07:21 11/23/18 07:21 11/23/18 08:00 11/23/18 07:21 11/23/18 07:21 Oxygen Devices in Use Now: None Appearance: fit appearing elderly male, lying at 20 degrees, comfortable. Eyes: No Scleral Icterus, PERRLA Ears/Nose/Mouth/Throat: Clear Oropharnyx, Mucous Membranes Moist Neck: NL Appearance and Movements; NL JVP, Trachea Midline, No Thyroid Enlargement, Masses Respiratory: Symmetrical Chest Expansion and Respiratory Effort, Clear to Auscultation Cardiovascular: NL Sounds; No Murmurs; No JVD, RRR, - - no chest wall tenderness.\ Abdominal: NL Sounds; No Tenderness; No Distention, No Hepatosplenomegaly Extremities: No Edema Skin: No Rash or Ulcers Neurological: Alert and Oriented x 3, NL Muscle Strength and Tone Laboratory Results: 11/22/18 10:02 11/23/18 05:04 INR (Anticoag Therapy) 2.30 (0.77-1.02) H 11/23/18 05:04 APTT 44.5 seconds (26.0-36.3) H 11/22/18 10:03 Total Bilirubin 0.60 mg/dL (0.2-1.0) 11/22/18 10:02 AST 32 U/L (13-39) 11/22/18 10:02 ALT 14 U/L (7-52) 11/22/18 10:02 Alkaline Phosphatase 108 U/L (34-104) H 11/22/18 10:02 Total Protein 6.8 g/dL (6.4-8.9) 11/22/18 10:02 Albumin 3.8 g/dL (3.2-5.2) 11/22/18 10:02 Globulin 3.0 g/dL (2-4) 11/22/18 10:02 Albumin/Globulin Ratio 1.3 (1-3) 11/22/18 10:02 Triglycerides 73 mg/dL 11/23/18 05:04 Cholesterol 167 mg/dL 11/23/18 05:04 LDL Cholesterol 105 mg/dL 11/23/18 05:04 HDL Cholesterol 47.6 mg/dL 11/23/18 05:04 TSH 0.31 mcIU/mL (0.34-5.60) L 11/23/18 05:04 11/22/18 11/22/18 11/22/18 10:02 13:20 16:23 Troponin I 1.90 H* 1.76 H* 1.92 H* 11/22/18 11/23/18 19:53 05:04 Troponin I 1.47 H* 1.82 H* Diagnostic Imaging: Echo 11/23/18: inferior posterior wall motion abnormality, EF 40%. EKG Data: NSR, LBBB Assessment/Plan 83 yo male with long hx PAF, hx distant CABG with good CHERRY but occluded vein grafts on last cath. Recent cessation of amiodarone due to SOB hills/stairs and diminshed DLCO. The patient has had 10 days of chest aching and a 1 x history of crunching pain left lateral chest, elevated troponins and inferior/posterior wall motion changes (seen before but EF has decreased). Low TSH. CP/CAD and elevated troponins: Pt at risk for demand ischemia and also for progression in CAD. I suspect off amiodarone the patient's syntheroid requirements have decreased and the patient's hyperthyroid state is contributing or causing ischemic stress. Hospitalists are going to hold syntheroid as per discussion, if resumed start at a lower level. Continue BB and increase for cardiac protection as trops going up/down. Chemical stress in AM. Continue to hold coumodin in case catheterization needed in follow up, prn lovenox. CM: BB started. ACEI should be initiated, I will add low dose low potency ACEI as not a lot of BP room, titrate to vitals. Dyslipidemia: LDL not at goal, outpatient notes document possible myalgias in 2018 and document intolerance to multiple statins. Consider trial of Welchol here, outpatient could try and get on PCSK9 inhibitor. PAF: No plans for new antiarrhythmic at this time. BB and anticoagulation.
[2018-11-23] MEDS ORDERED: Warfarin TAB(*) 5 MG PO SCH ×2 (12:41→17:00)
--- NOTE | 2018-11-23 12:53 | CONS ---
CC: Dr. Deion Brown; Dr. Antunez; Hospitalist Service. CARDIOLOGY CONSULTATION: DATE OF CONSULT: 11/22/18 REASON FOR CONSULT: Chest discomfort and elevated troponins. CHIEF COMPLAINT: Chest aching. HISTORY OF PRESENT ILLNESS: Mr. Hernandes is an 83-year-old gentleman followed by my partner, Dr. Antunez, with a history of paroxysmal atrial fibrillation as well as coronary artery disease with bypass surgery. 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 The patient had been on amiodarone for many years to control his paroxysmal atrial fibrillation; however, his diffusion capacity decreased and he was taken off amiodarone last fall. He has been on no antiarrhythmic since and had some mild shortness of breath climbing stairs that has not increased acutely. The patient states that about 10 days ago, he was sleeping on his stomach and heard a crack in the left rib. He also describes chest aching in the lower substernal area radiating to the left that has been present for about 10 days, history is vague. The patient states that at least one of the pains is positional and can be brought on or relieved depending on how he is sleeping. He denies any exertional change in the aching pain. The patient denies any awareness of palpitations or racing of the heart. He denies fevers, chills, sweats, orthopnea, PND, change in bowel or bladder habits. In answering my question of why the patient decided to come in today, he was again a vague, he just wanted to find out why he had the persistent discomfort. PAST MEDICAL HISTORY: 1. Paroxysmal atrial fibrillation with secondary tachycardic-induced cardiomyopathy (2003 as low as 15%; 2018 echo at [facility], normal ejection fraction). 2. Coronary artery disease with CABG (CHERRY to LAD; saphenous vein graft to PDA ; and sequential saphenous vein graft to the right PL1, PL2, and OM branch; vein graft occluded in 2002, CHERRY intact). 3. Dyslipidemia. 4. Diminished diffusion capacity 2018, felt to be related to amiodarone. 5. Thyroid abnormality, on replacement. 6. DVT, post CABG. 7. Left bundle-branch block since 2013. 8. Mitral insufficiency. 9. Renal insufficiency. 10. Subdural hematoma and subarachnoid hemorrhage, post fall off ladder, on anticoagulation, treated at [facility]. PAST SURGICAL HISTORY: 1. Bypass surgery, 2000. 2. Hernia repair, inguinal. 3. Cataract surgery. MEDICATIONS: Outpatient medications include: 1. Coumadin as directed. 2. Amlodipine 2.5 mg a day. 3. Levothyroxine 75 mcg a day. 4. Simvastatin 10 mg a day. 5. Aspirin 81 mg a day. ALLERGIES: Include STATINS (LIPITOR, ZOCOR, CRESTOR, and VYTORIN). FAMILY HISTORY: Positive for coronary artery disease, he has a brother who of a heart attack. His mother had a history of congestive heart failure. He had a sister who at age 9 related to complications of rheumatic fever. A brother with a history of stroke. A brother with a history of lymphoma, and brother with a history of prostate cancer. SOCIAL HISTORY: The patient is . He is retired. He is not smoking or drinking and no history of recreational drug use. He has a daughter who is a business operations manager. REVIEW OF SYSTEMS: See history of present illness for 2 kinds of chest pain: One, a cracking pain and one, an achy pain. Significant for several months of exertional dyspnea on hills or stairs, stable. Negative for orthopnea, PND. No recent fevers, chills, sweats. No change in bowel or bladder habits. No swelling in his legs. No trouble sleeping and all other 14-point review of systems was negative. PHYSICAL EXAM: The patient is an older gentleman, appears fit and well nourished, in no acute distress, lying flat, and appeared comfortable. Vitals: 5 feet, 3 inches; weighs 139 pounds with a BMI of 24. Blood pressure 139/76, pulse was 63 and regular, oxygen saturation 95% on room air, and he is afebrile. HEENT: Pupils were equal and round. Mucous membranes moist. Neck without increased JVP. Good carotid pulses without audible bruits. Breath sounds were clear with good effort. No wheezing, rales, or rhonchi. Coronary: S1, S2, regular with a 2/6 systolic murmur heard at the apex, trace systolic murmur heard at the right upper sternal border. No tenderness in the chest wall , in the sternum, left parasternal area, or more lateral ribs in the left. Abdomen: Active bowel sounds, soft, nontender. No epigastric discomfort. No hepatosplenomegaly. Extremities: Warm, free of edema with palpable posterior tibial and dorsal pedis pulses. Neuro: He is awake, alert, oriented to person , place, and time. Grossly normal sensory and motor function based on exam in the bed. Skin: Old, well-healed scar is noted, no cyanosis or rashes. DIAGNOSTIC STUDIES/LAB DATA: Studies: The patient's 12-lead ECG on arrival to the hospital, 11/22/18, shows normal sinus rhythm with a left bundle-branch block and is not significantly changed from his EKG of 03/28/18. Laboratories: Sodium 138, potassium 4.5, chloride 107, bicarb 23, BUN 25, creatinine 1.2, glucose 105, AST 32, ALT 14, alk phos 108, CPK 181, troponin #1 1.9, troponin #2 1.76. INR 2.58, PTT 44.5. White count 5.7, hemoglobin 14, hematocrit 42, platelets 218. Urinalysis: Trace ketones, nitrite negative, esterase negative, positive blood. Lipids from 07/17/18, showed total cholesterol 196, triglycerides 88, HDL cholesterol 57, and LDL cholesterol 122. Free T4 was 1.4, TSH 2.04. Sedimentation rate of 18 and C-reactive protein 1.44. CT of the abdomen and pelvis, 11/22/18, did not show rib fractures, did suggest atypical pneumonia on the right upper lobe. Compression deformity L2 vertebral body. IMPRESSION AND PLAN: In summary, Cleve Hernandes is an 83-year-old gentleman with distant bypass surgery, a longstanding history of paroxysmal atrial fibrillation, who has been taken off amiodarone relatively recently and additionally, he has had some adjustments in his simvastatin dose, who presents with a history of a sensation of a crack in the left lateral ribcage as well as a history of 10 days of achy chest pain. He has a longstanding left bundle- branch and his labs on admission showed mild elevation in troponin. The achy pain and elevated troponins raised concern for me that he had a myocardial infarction 10 days ago. If this is the case then a stress test, and not a heart catheterization, would be the best approach. I am going to get an echocardiogram in the morning to determine if there are new wall motion abnormalities or newly depressed ejection fraction. Other potential etiologies for raising his troponin could be paroxysmal atrial fibrillation, pulmonary embolus, or pericardial presentation; however, the patient has been on chronic anticoagulation, has a normal sed rate, and is in normal sinus rhythm, so I do not have evidence of nonischemic etiologies. As the patient's amiodarone has been discontinued and his thyroids were mildly abnormal in the past, I have recommended that we update thyroids as this could lead to increased stress on the heart and with his history of graft occlusions, he is at risk for demand ischemia as well. Additional recommendations will be made pending the results of his echo in clinical course. In terms of optimizing medical management, ideally we get his lipids better controlled, which has been difficult in the past due to statin intolerance and in reviewing his outpatient records, it appears that our plans are already in place to attempt to get on PCSK9 inhibitor. Regarding the patient's paroxysmal atrial fibrillation as he is maintaining sinus rhythm at this point, I am not planning on adding any antiarrhythmic and will also defer this to the outpatient setting. Thank you for allowing me to assist in this nice gentleman's care. [id number]/[facility] #: [id number] [place]
[2018-11-23] MEDS: Atorvastatin* 10 MG TAB PO SCH (17:38)
[2018-11-23] MEDS ORDERED: Ramipril CAP* 2.5 MG PO SCH (21:00)
[2018-11-24 05:43] LABS: ABS Basophils 0.1 10^3/ul (0-0.2); ABS Eosinophils 0 10^3/ul (0-0.6); ABS Lymphocytes 1.8 10^3/ul (1.0-4.8); ABS Monocytes 0.6 10^3/ul (0-0.8); ABS Neutrophils 4.4 10^3/ul (1.5-7.7); ABS Nucleated RBC 0 10^3/ul; Eosinophil % 0.6 %; Hematocrit 43 % (42-52); Hemoglobin 14.5 g/dl (14.0-18.0); Lymphocyte % 25.7 %; Mean Corpuscular HGB Conc 34 g/dl (31-36); Mean Corpuscular Hemoglobin 30 pg (27-31); Mean Corpuscular Volume 88 fL (80-94); Mean Platelet Volume 7.8 fL (7.4-10.4); Nucleated Red Blood Cells % 0.1; Platelet Count 199 10^3/ul (150-450); Red Blood Count 4.93 10^6/ul (4.00-5.40); Red Cell Distribution Width 14 % (10.5-15); White Blood Count 6.9 10^3/ul (3.5-10.8)
[2018-11-24] MEDS ORDERED: Levothyroxine TAB* 50 MCG TAB PO SCH (06:00)
[2018-11-24 06:08] LABS: BUN/Creatinine Ratio 22.2 (8-20); EGFR Non-African American 59.2 (>60)
[2018-11-24] MEDS: Metoprolol Tartrate TAB* 25 MG PO SCH (08:20)
[2018-11-24] MEDS: Aspirin EC TAB* 81 MG TAB.EC PO SCH (08:20)
[2018-11-24] MEDS ORDERED: Regadenoson* 0.4 MG/5 ML SYRINGE ONE (10:36)
[2018-11-24 12:57] LABS: INR 1.54 (0.77-1.02)
[2018-11-24 15:15] VITALS: BP 121/62
[2018-11-24] MEDS ORDERED: Warfarin TAB(*) 5 MG PO ONE (17:00)
--- NOTE | 2018-11-25 01:45 | DS ---
CC: Dr. Deion Brown; Dr. Pawan Antunez * DISCHARGE SUMMARY: DATE OF ADMISSION: 11/22/18 DATE OF DISCHARGE: 11/24/18 PRIMARY CARE PROVIDER: Dr. Deion Brown. ANIMAL TECH: Dr. Pawan Antunez. ATTENDING PHYSICIAN: Dr. Rey * (dictated by Torrie Chávez NP). PRIMARY DIAGNOSES: 1. 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 2. Musculoskeletal chest pain. SECONDARY DIAGNOSES: 1. Chronic kidney disease stage 2. 2. Atrial fibrillation. 3. Hypertension. 4. Hyperlipidemia. STUDIES WHILE IN THE HOSPITAL: 1. EKG on 11/22/18 shows normal sinus rhythm with a rate of 65, left bundle branch block, QTc 502. 2. Chest, abdomen and pelvis CT on 11/22/18 reads as there is a compression deformity of the L2 vertebral body that has progressed slightly when compared to the 05/07/12 lumbar spine radiograph. Otherwise, there are no acute fractures. CT findings could be compatible with atypical pneumonia involving the lateral right upper lobe. Benign appearing lipoma at the right axilla. Please correlate to physical exam findings. Chronic degenerative and iatrogenic findings, described in the body of the report, unlikely to be directly related to the patient's current clinical presentation. 3. EKG on 11/22/18 shows normal sinus rhythm with a rate of 63, left bundle branch block, QTc 467. 4. Transthoracic echocardiogram on 11/23/18 reads as the left ventricular chamber size is normal. There is moderately decreased left ventricular systolic function. Base of the posterior wall and most of the inferior wall was akinetic and severely hypokinetic. Septal dyssynchrony, marked compared with prior, CABG, and the presence of a left bundle branch block. The estimated ejection fraction is 40%. Abnormal left ventricular diastolic filling is observed, consistent with impaired relaxation. The right ventricular global systolic function is normal. There is an aortic valve sclerosis and trace aortic regurgitation. There is mild mitral regurgitation. There is trace-to- mild tricuspid regurgitation. The right ventricular systolic pressure is estimated at 28 mmHg. There is mild dilation of the ascending aorta. Compared with prior echo of 04/16/17, EF has decreased from 45% to 50%, wall motion abnormality is not significantly changed, valve function is stable. 5. EKG on 11/23/18 shows sinus bradycardia with a rate of 58, left bundle branch block, QTc 490. 6. Nuclear cardiac stress test on 11/24/18 reads as no compelling scintigraphic evidence for stress induced ischemia or infarct. Gated wall motion images were obtained at stress and demonstrated akinesia and hypokinesia at the septum and apex. Low normal range estimated left ventricular ejection fraction. Low risk based on nuclear portion. HISTORY OF PRESENT ILLNESS AND HOSPITAL COURSE: Mr. Hernandes is an 83-year-old male with past medical history of hypothyroidism, hyperlipidemia, atrial fibrillation/flutter, chronic kidney disease stage 2, chronic ischemic heart disease, L2 compression fracture, left bundle branch block, and hypertension, who presented to the emergency room on 11/22/18 with complaints of left rib tenderness. Please see the history and physical by Anya Berg NP , for a complete summary of the events leading up to this hospitalization. In short, the patient reported that approximately 10 days prior to presenting to the emergency room, he twisted wrong in bed and heard a cracking sound in his left ribs. He was having left-sided discomfort, mostly when sleeping on his left side. He reported that when he had his previous NC and CABG in 2000, he had no chest pain at that time, but rather shortness of breath. He denied any shortness of breath on this admission. He did recently stop amiodarone based on the recommendation from his mobile sales assistant. He presented to the emergency room because of the continued discomfort. In the emergency room, he was noted to have an EKG without any acute changes. He did have a troponin of 1.9, which was confirmed when repeated. There were no abnormalities noted to the left ribs on CT because of the concern for elevated troponin and atypical chest pain. The patient was admitted by the hospitalist service. It was initially thought that the patient was suffering from an NSTEMI, troponins peaked at 1.92 on 11/22/18. He was not on a beta-anca and it was not clear why. He was already on a statin and daily aspirin and was therapeutically anticoagulated with warfarin. His other medical problems remained stable, including his hypertension and chronic kidney disease. The patient was seen in consultation by Dr. Salter from Cardiology on 11/23/18, who was concerned that the patient has suffered a myocardial infarction 10 days prior to admission and felt as though a stress test was warranted. It was noted that the patient had a low TSH at 0.31. This is likely related to recently being taken off amiodarone. Reportedly, as an outpatient, Cardiology has been attempting to place the patient on a PCSK9 inhibitor as he historically does not tolerate statins well, although has been on a low-dose statin at home. Dr. Salter recommended starting a beta-anca and MARGARITA inhibitor. His LDL was noted to be greater than 100, though at this point we have been unable to increase his statins due to prior intolerance. On 11/24/18 , the patient underwent a nuclear cardiac stress test, which indicated that he was low risk. As of today, the patient's troponin is 1.08, his Synthroid has been held since admission and because of his low risk stress test and absence of EKG changes, his elevated troponins are attributable to medication induced hyperthyroidism. The patient continues to have some mild left rib pain, which is musculoskeletal in nature. The patient was seen by Dr. Álvarez from Cardiology today, who felt as though he was stable for discharge home, with plans to follow up with Dr. Antunez as an outpatient. He agreed that this episode was not sales and service representative of an NSTEMI. As of today, the patient reports feeling well. He is anxious to return home. As I noted, he continues to have some left rib pain, which is somewhat reproducible on exam. He notes that the rib pain is worse when lying on his left side. Telemetry monitoring has been unremarkable and the patient is anxious to return home. Mr. Hernandes is stable for discharge today. Vital signs are as follows: Temp 98.1, heart rate 54, respiratory rate 16, oxygen saturation 97% on room air, blood pressure 121/62. DISCHARGES MEDICATIONS: New medications: 1. Metoprolol tartrate 12.5 mg p.o. b.i.d. 2. Ramipril 2.5 mg p.o. at bedtime. Continued medications: 1. Aspirin 81 mg p.o. daily. 2. Simvastatin 10 mg p.o. at bedtime. 3. Warfarin 5 mg p.o. daily. Discontinued medications: Levothyroxine. DISCHARGE PLAN: Mr. Hernandes will be discharged home. Activity will be as tolerated. Diet will be heart healthy. Medications are noted above. The patient has been prescribed metoprolol and ramipril per Cardiology recommendations. I will note that he was on 25 mg b.i.d. of metoprolol while here in the hospital and has been slightly bradycardic, so I have decreased that to 12.5 b.i.d. at this point. Blood pressures have been stable with the addition of ramipril. His INR was 1.54 today and so I have ordered him to receive 5 mg of warfarin today prior to leaving the hospital. He has been advised to take 5 mg of warfarin tomorrow and then he will need to have his INR checked on Saturday with the results sent to Dr. Brown. The patient has been advised to discontinue his levothyroxine until followup with his primary care provider. He should follow up with his primary care provider in 4 to 7 days and will need to follow up with his mobile sales assistant in the next month. He has been advised to return to the emergency room for any worsening of symptoms, shortness of breath, lightheadedness, dizziness, chest discomfort, high fevers, chills, night sweats, loss of consciousness or any other worrisome signs or symptoms. This is a summarized report of a complex medical history and hospital stay. For further details, please see the entire medical record. TIME SPENT: Approximately 40 minutes were spent on this discharge. TORRIE CHÁVEZ NP [id number]/[facility] #: [id number] [place]
--- NOTE | 2018-11-25 07:59 | CONSULT ---
Consult Consult: [facility] Inpatient Consult Note Date of Consult: 11/25/18 Reason for Consult: hyperthyroidism Reason for Admission: chest pain ASSESSMENT: 83 yo M with history of distant CABG and paroxysmal AF, on amiodarone until recently, stopped due to pulmonary toxicity, now presenting with chest pain, tachycardia and biochemical evidence of demand ischemia -- all in setting of low TSH. His usual levothyroxine dose is 75mcg/day, on which he has been able to maintain TSH 1-4 since 2014, although not is made of elevated free T4 on numerous occasions since then. I am uncertain whether low TSH reflects true thyrotoxicosis or transient suppression from non-thyroidal illness , but time course of amiodarone cessation and onset of thyrotoxic symptoms seems to fit the clinical picture. When amiodarone is stopped, hypothyroidism in patients with no apparent preexisting thyroid disease often resolves. In contrast, hypothyroidism may persist after withdrawal of amiodarone in patients who have underlying chronic autoimmune thyroiditis with high titers of antithyroid peroxidase (TPO) antibodies and goiter; these patients therefore require permanent T4 therapy. PLAN: - reduce levothyroxine to 50mcg daily at discharge - recheck TFTs in 3-4 weeks after dose change - goal TSH 1-5 at hospital follow-up SUBJECTIVE: History of Present Illness: Past Medical History: Medications Prior to Admission: Aspirin EC TAB* [Ecotrin EC Low Dose 81 MG*] 81 mg PO DAILY 03/28/18 [History Confirmed 11/22/18] Simvastatin TAB(NF) [Zocor 10 MG (NF)] 10 mg PO QPM 03/28/18 [History Confirmed 11/22/18] Metoprolol Tartrate TAB* [Lopressor TAB*] 12.5 mg PO Q12HR #30 tab 11/24/18 [Rx] Ramipril CAP* [Altace CAP*] 2.5 mg PO 2100 #30 cap 11/24/18 [Rx] Warfarin TAB(*) [Coumadin TAB(*)] 5 mg PO MOTH #0 11/24/18 [Rx Confirmed ] Levothyroxine 75mcg daily Inpatient Medications: Allergies/Intolerances: Social History: Family History: Review of Systems: OBJECTIVE: Vital Signs: Temp Pulse Resp BP Pulse Ox 98.1 F 54 16 121/62 97 11/24/18 15:10 11/24/18 15:10 11/24/18 15:10 11/24/18 15:10 11/24/18 15:10 General: alert, pleasant, oriented, no distress ENT: neck supple, no thyromegaly, no bruit is heard Chest: CTAB, no wheezing or crackles CV: RRR, no murmur Abdomen: soft, non-tender Extremities: no edema, distal pulses intact Skin: warm, dry, no rash Neuro: grossly intact motor/sensory in extremities Psych: restricted affect, pleasant Labs: WBC 6.9 10^3/ul (3.5-10.8) 11/24/18 05:12 RBC 4.93 10^6/ul (4.00-5.40) 11/24/18 05:12 Hgb 14.5 g/dl (14.0-18.0) 11/24/18 05:12 Hct 43 % (42-52) 11/24/18 05:12 MCV 88 fL (80-94) 11/24/18 05:12 MCH 30 pg (27-31) 11/24/18 05:12 MCHC 34 g/dl (31-36) 11/24/18 05:12 RDW 14 % (10.5-15) 11/24/18 05:12 Plt Count 199 10^3/ul (150-450) 11/24/18 05:12 MPV 7.8 fL (7.4-10.4) 11/24/18 05:12 Neut % (Auto) 63.8 % 11/24/18 05:12 Lymph % (Auto) 25.7 % 11/24/18 05:12 [place]ble % (Auto) 9.2 % 11/24/18 05:12 Eos % (Auto) 0.6 % 11/24/18 05:12 Baso % (Auto) 0.7 % 11/24/18 05:12 Absolute Neuts (auto) 4.4 10^3/ul (1.5-7.7) 11/24/18 05:12 Absolute Lymphs (auto) 1.8 10^3/ul (1.0-4.8) 11/24/18 05:12 Absolute Monos (auto) 0.6 10^3/ul (0-0.8) 11/24/18 05:12 Absolute Eos (auto) 0 10^3/ul (0-0.6) 11/24/18 05:12 Absolute Basos (auto) 0.1 10^3/ul (0-0.2) 11/24/18 05:12 Absolute Nucleated RBC 0 10^3/ul 11/24/18 05:12 Nucleated RBC % 0.1 11/24/18 05:12 ESR 18 mm/Hr (0-40) 11/22/18 10:02 INR (Anticoag Therapy) 1.54 (0.77-1.02) H 11/24/18 05:12 APTT 44.5 seconds (26.0-36.3) H 11/22/18 10:03 Sodium 136 mmol/L (135-145) 11/24/18 05:12 Potassium 4.0 mmol/L (3.5-5.0) 11/24/18 05:12 Chloride 105 mmol/L (101-111) 11/24/18 05:12 Carbon Dioxide 24 mmol/L (22-32) 11/24/18 05:12 Anion Gap 7 mmol/L (2-11) 11/24/18 05:12 BUN 26 mg/dL (6-24) H 11/24/18 05:12 Creatinine 1.17 mg/dL (0.67-1.17) 11/24/18 05:12 Est GFR ( Amer) 71.7 (>60) 11/24/18 05:12 Est GFR (Non-Af Amer) 59.2 (>60) 11/24/18 05:12 BUN/Creatinine Ratio 22.2 (8-20) H 11/24/18 05:12 Glucose 90 mg/dL (70-100) 11/24/18 05:12 Lactic Acid 1.5 mmol/L (0.5-2.0) 11/22/18 10:02 Calcium 9.0 mg/dL (8.6-10.3) 11/24/18 05:12 Magnesium 1.9 mg/dL (1.9-2.7) 11/22/18 10:02 Total Bilirubin 0.60 mg/dL (0.2-1.0) 11/22/18 10:02 AST 32 U/L (13-39) 11/22/18 10:02 ALT 14 U/L (7-52) 11/22/18 10:02 Alkaline Phosphatase 108 U/L (34-104) H 11/22/18 10:02 Total Creatine Kinase 78 U/L (10-223) 11/24/18 05:12 Troponin I 1.08 ng/mL (<0.04) H* 11/24/18 05:12 C-Reactive Protein 1.44 mg/L (<8.01) 11/22/18 10:02 Total Protein 6.8 g/dL (6.4-8.9) 11/22/18 10:02 Albumin 3.8 g/dL (3.2-5.2) 11/22/18 10:02 Globulin 3.0 g/dL (2-4) 11/22/18 10:02 Albumin/Globulin Ratio 1.3 (1-3) 11/22/18 10:02 Triglycerides 73 mg/dL 11/23/18 05:04 Cholesterol 167 mg/dL 11/23/18 05:04 LDL Cholesterol 105 mg/dL 11/23/18 05:04 HDL Cholesterol 47.6 mg/dL 11/23/18 05:04 Lipase 21 U/L (11.0-82.0) 11/22/18 10:02 TSH 0.31 mcIU/mL (0.34-5.60) L 11/23/18 05:04 Free T4 1.39 ng/dL (0.61-1.12) H 11/23/18 05:04 Free T3 Cancelled 11/23/18 05:04 Total T3 86 ng/dL (87-178) L 11/23/18 05:04 Urine Color Yellow 11/22/18 09:26 Urine Appearance Clear 11/22/18 09:26 Urine pH 6.0 (5-9) 11/22/18 09:26 Ur Specific [place] 1.017 (1.010-1.030) 11/22/18 09:26 Urine Protein Negative (Negative) 11/22/18 09:26 Urine Ketones Trace (Negative) A 11/22/18 09:26 Urine Blood 1+ (Negative) A 11/22/18 09:26 Urine Nitrate Negative (Negative) 11/22/18 09:26 Urine Bilirubin Negative (Negative) 11/22/18 09:26 Urine Urobilinogen Negative (Negative) 11/22/18 09:26 Ur Leukocyte Esterase Negative (Negative) 11/22/18 09:26 Urine WBC (Auto) Trace(0-5/hpf) (Absent) 11/22/18 09:26 Urine RBC (Auto) 1+(3-5/hpf) (Absent) A 11/22/18 09:26 Urine Bacteria Absent (Absent) 11/22/18 09:26 Hyaline Casts Present (Absent) A 11/22/18 09:26 Urine Glucose Negative (Negative) 11/22/18 09:26
== END 2018-11-24 18:22 | disposition home or self-care (01) | DRG 644 ==
LOC: ED 08:50 → MEDTELE 12:37
PROVIDERS: ADMIT Internal Medicine; ATTEND Internal Medicine
DX: E05.80 Other thyrotoxicosis without thyrotoxic crisis or storm (principal); M48.56XA Collapsed vertebra, not elsewhere classified, lumbar region, initial encounter for fracture; I48.92 Unspecified atrial flutter; R74.8 Abnormal levels of other serum enzymes; I48.0 Paroxysmal atrial fibrillation; R07.81 Pleurodynia; N18.2 Chronic kidney disease, stage 2 (mild); E78.5 Hyperlipidemia, unspecified; M85.80 Other specified disorders of bone density and structure, unspecified site; E03.9 Hypothyroidism, unspecified; I44.7 Left bundle-branch block, unspecified; I25.9 Chronic ischemic heart disease, unspecified; I13.10 Hypertensive heart and chronic kidney disease without heart failure, with stage 1 through stage 4 chronic kidney disease, or unspecified chronic kidney disease; I25.10 Atherosclerotic heart disease of native coronary artery without angina pectoris; Z95.1 Presence of aortocoronary bypass graft; I25.2 Old myocardial infarction; Z79.01 Long term (current) use of anticoagulants; Z79.82 Long term (current) use of aspirin; Z79.899 Other long term (current) drug therapy; Z88.8 Allergy status to other drugs, medicaments and biological substances; Z82.49 Family history of ischemic heart disease and other diseases of the circulatory system; Z82.3 Family history of stroke; Z80.7 Family history of other malignant neoplasms of lymphoid, hematopoietic and related tissues; Z80.42 Family history of malignant neoplasm of prostate; I08.1 Rheumatic disorders of both mitral and tricuspid valves
CPT/HCPCS: 36415; 71250; 74176; 78452; 80048; 80053; 80061; 81003; 81015; 82550; 83605; 83690; 83735; 84145; 84439; 84443; 84479; 84484; 85025; 85610; 85652; 85730; 86140; 87086; 93005; 93017; 93306; 99284; A9270-GY; A9502; J2785